=== PATIENT | female | born 1945 | race Two or more races ===

== ENCOUNTER 2024-10-27 06:13 | Day surgery (SDC) | payer OTHER, SELFPAY ==
[2024-10-27 09:00] VITALS: BMI 22.9
[2024-10-27 09:01] VITALS: BMI 22.4
--- NOTE | 2024-10-27 09:28 | PTCARENOTE ---
Patient is on multiple medications at the [facility]. Called patients nurse at [facility] and nurse stated multiple times that she was in a meeting and that she could not talk. Told nurse that RN had to go over when patient last took her
medications and she said she could not talk. [employer] John HARPER notified and stated not to enter the med list. Will monitor patient. Patient does not appear to be on any blood thinners. Will monitor patient.
[2024-10-27 09:42] VITALS: BP 159/81
[2024-10-27 11:31] VITALS: BP 133/87
[2024-10-27 11:45] VITALS: BP 132/85
[2024-10-27 12:00] VITALS: BP 127/76
== END 2024-10-27 12:20 | disposition home or self-care (01) ==
LOC: SDS 06:13
PROVIDERS: ATTENDING PHYSICIAN Internal Medicine Gastroenterology
DX: K83.8 Other specified diseases of biliary tract (principal); K86.89 Other specified diseases of pancreas
CPT/HCPCS: 43259